=== PATIENT | female | born 1940 | race Caucasian/White ===

== ENCOUNTER 2025-11-22 10:54 | Day surgery (SDC) | payer BC, SELFPAY ==
[2025-11-22] VITALS (18 sets, daily range): BP systolic 91–177; BP diastolic 59–118; BMI 26.5
--- NOTE | 2025-11-22 11:35 | ITS.CL.PACE ---
Hydro Excavation Operator - Pacemaker Implant
Pacemaker Implant
Procedure Report:
Primary Care Doctor: Dr Garry New
Primary Switchman Supervisor: Dr Chaz Thayer
Procedure Date: 11/22/2025
Name of procedure:
1. Placement of a dual-chamber pacemaker with left bundle area pacing lead for conduction system pacing
2. Subclavian venography
History:
1. 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
hyperlipidemia, and history of right breast cancer.
2. Please refer to H&P for complete history.
Indication:
Symptomatic irreversible sinus bradycardia
Sick sinus syndrome with sinus pauses greater than 5 seconds
Syncope associated with above
Methods:
After informed consent was obtained, the patient was brought to the EP laboratory in a postabsorptive, nonsedated state. Peripheral IV access was established. Prophylactic antibiotics were administered prior to incision. Continuous ECG, blood
pressure, and pulse oximetry were initiated. Cardioversion patch electrodes were placed on the patient's chest and back. A grounding patch was applied to the skin. Sedation was administered by anesthesia services.
In order to define the extrathoracic portion of the subclavian vein and exclude significant venous obstruction or anomalous anatomy, subclavian venography was performed prior to the procedure. Using the patient's left peripheral IV, contrast was
injected and images were recorded. The left subclavian vein and SVC were found to be widely patent.
The left chest was prepared and draped in a sterile fashion. A time-out was performed. Local anesthesia was injected in the subcutaneous tissue in the infraclavicular area. An incision was made medial to the deltopectoral groove. The subcutaneous
tissue was dissected the level of the prepectoral fascia. A subcutaneous pocket was created. Under fluoroscopic guidance and with the assistance of the images from the venogram, 2 separate venipunctures were made using micropuncture and modified
Seldinger technique. These were performed in the extrathoracic portion of the subclavian vein. Guidewires were passed and two peel-away sheaths were placed, and used to advance leads into the circulation.
Fluoroscopy was used to determine likely anatomic site for left bundle branch pacing. The Medtronic C315 sheath was used to deliver the Medtronic 3830 Selectsecure pacing lead with the helix exposed just exposed from the sheath tip during continuous
monitoring when pacemapping the septum during gentle clockwise rotation to obtain a paced QRS morphology of a W pattern in lead V1. Once the suspected optimal site was identified, lead deployment was performed with several rapid rotations as paced
QRS morphology was intermittently monitored until a paced QRS complex in lead V1 demonstrated development of an R wave (qR or rSR). Unipolar pacing impedance dropped by approximately 100-200 ohms suggesting it had reached the left ventricular
subendocardial. Stable VEgm injury current is present throughout lead position and at end of case. Final unipolar pacing impedance is 1300 Ohms. Unipolar pacing threshold is stable at 1.0 V @ 0.4 ms. The patient had pre-existing narrow QRS at
baseline. Final conduction system paced QRS complex duration is 95 ms, LVAT is 66 ms, and peak V5 -> peak V1 timing is 46 ms. The C315 sheath was slit under fluoroscopy ensuring lead position and stability. The short peel-away sheath was then
split and the lead was secured to the fascia with Ethibond ties.
Next, the right atrial lead was positioned in the right atrial appendage. Adequate sensing and pacing parameters were found, and no diaphragmatic stimulation was seen with high-output pacing. The sheath was split and the lead was secured to the
fascia with Ethibond ties.
The pocket was flushed with antibiotic solution and hemostasis was assured. The generator was connected to the leads and placed inside the pocket. The device was sutured to the fascia. Antibiotic envelope was used. Floseal was applied. The wound
was closed with 3 running layers of absorbable suture, and steri-strips were applied. Dressing applied over steri-strips in standard fashion.
Following the procedure, the patient was taken to the recovery area in stable condition. A chest x-ray to be obtained post procedure as routine.
Lead parameters and device programming:
- RA Lead (Medtronic, Model 5076, # [id number]): Sensing 3.5 mV, Pacing threshold 0.75 V at 0.4 ms, Imp 418 ohm
- RV Lead (Medtronic, Model 3830, #[id number]): Sensing 14.9 mV, Pacing threshold 0.75 V at 0.4 ms, Imp 703 ohm (bipolar)
- Device: Medtronic, Model W1 DR 01 pacemaker (# [id number]), programmed AAIR�DDDR mode, 60-130 ppm
Conclusions:
1. Successful placement of a dual-chamber pacemaker with conduction system pacing (LBBAP)
2. Subclavian venography
Recommendations:
- Admit
- Chest x-ray tonight, [facility] in AM.
- IV antibiotics while the patient is admitted.
- OK to resume home medications as indicated
- Pressure dressing to be removed in AM, aquacell to remain until wound check
- Follow-up will be arranged in the office in 7-10 days post-discharge for incision check
Fco Peraza DO, FACC, RS
Clinical Cardiac Principal Law Clerk
cc: Dr Garry New; Dr Chaz Thayer
--- NOTE | 2025-11-22 18:05 | PTCARENOTE ---
Patient received from EP lab recovery following PPM insertion. Ambulated with standby assist into the room. Left chest PPM incision with aquacell and pressure dressing C/D/I, radial pulse palpable. Denies pain but reports a tugging sensation at the
site. LUE in immobilizer. Apaced on telemetry. SaO2 on RA 95-96%. Activity restrictions discussed. Patient oriented to room and unit. Call [place] within reach. Care ongoing.
--- NOTE | 2025-11-22 20:09 | PTCARENOTE ---
assumed care of patient at the change of shift. AAOx3. complaining of a mild headache; requested tylenol. prior to receiving medications patient asked to go to the bathroom. vital signs obtained. SR on tele 70s. bp 129/69. ambulated to the bathroom,
standby assist. patient was able to urinate and after standing and washing hands, patient states 'im not feeling that great.' RN assisted patient to sit on the toilet. patient began to look pale and states 'im feeling clammy.' RN called for extra
assistance. patient was able to stand and prior to sitting in chair; patient went unresponsive. blank stare and not responding to verbal commands. patient was unresponsive for less than a minute. a code was called but cancelled. RNs lifted patient
back to bed and patient started responding to verbal commands. Apacing on tele 60s. bp 128/72. 95% on RA. patient states feeling much better once settled. appears to be a vagal response. Rafael PALENCIA at the bedside. labs ordered and sent.
educated patient to inform RN with needing assistance.
[2025-11-22 20:20] LABS: Hematocrit 39.6 % (37.0-47.0); Hemoglobin 13.5 g/dL (12.0-16.0); Mean Corp Hgb Conc. 34.1 g/dL (33.0-37.0); Mean Corpuscular Volume 90.6 fL (81.0-99.0); Platelet Count 240 10^3/uL (130-400); Red Cell Dist. Width 13.5 % (11.5-14.5)
[2025-11-22] MEDS: TYLENOL 650 MG PO (20:36)
[2025-11-22] MEDS: ANCEF 5 IV (20:36)
[2025-11-22 20:39] LABS: Blood Urea Nitrogen 12 mg/dl (7-17); Calcium 8.7 mg/dl (8.4-10.2); Carbon Dioxide 24 mmol/L (22-30); Chloride 107 mmol/L (98-107); Estimated Creatinine Clearance 40 ml/min; Glucose 139 mg/dl (70-99); Magnesium 1.9 mg/dl (1.6-2.3); Potassium 3.8 mmol/L (3.5-5.1); Sodium 136 mmol/L (135-145); eGFR > 60.00
[2025-11-22] MEDS: MAGNESIUM OXIDE 400 MG PO (21:19)
[2025-11-22] MEDS: KCL 20 MEQ PO (21:19)
[2025-11-23 04:20] VITALS: BP 125/63
[2025-11-23] MEDS: SYNTHROID 88 MCG PO (04:38)
[2025-11-23] MEDS: ANCEF 5 IV (04:38)
[2025-11-23 04:40] VITALS: BMI 26.9
--- NOTE | 2025-11-23 04:43 | PTCARENOTE ---
overnight, RN assisted patient to the BSC. tolerated. no lightheadedness/dizziness. this morning, RN ambulated patient to the bathroom and back to bed. no issues. denied any lightheadedness/dizziness. steady on her feet. patient states feeling much
better. Apaced on tele. SR at times- 60s. bp 125/63. L chest site CDI. reviewed activity restrictions with patient and verbalized understanding.
[2025-11-23 05:07] LABS: Hematocrit 37.7 % (37.0-47.0); Hemoglobin 12.7 g/dL (12.0-16.0); Mean Corp Hgb Conc. 33.7 g/dL (33.0-37.0); Mean Corpuscular Volume 90.2 fL (81.0-99.0); Platelet Count 217 10^3/uL (130-400); Red Cell Dist. Width 13.6 % (11.5-14.5)
[2025-11-23 05:23] LABS: Blood Urea Nitrogen 10 mg/dl (7-17); Calcium 8.6 mg/dl (8.4-10.2); Carbon Dioxide 22 mmol/L (22-30); Chloride 108 mmol/L (98-107); Estimated Creatinine Clearance 46 ml/min; Glucose 97 mg/dl (70-99); Magnesium 2.1 mg/dl (1.6-2.3); Potassium 4.2 mmol/L (3.5-5.1); Sodium 135 mmol/L (135-145); eGFR > 60.00
[2025-11-23 07:26] VITALS: BP 136/93
--- NOTE | 2025-11-23 10:05 | W.PN.CARDCBS ---
Addendum entered and electronically signed by Fco Peraza DO 11/23/25 15:41:
I saw and examined the patient.
The Marketing Research Intern's note was reviewed and I agree with the note.
Comment:
Patient experienced episode of vasovagal syncope occurring yesterday evening. Patient was transferring from commode when she became lightheaded and dizzy with prodrome. Patient was helped to wheelchair when she lost consciousness. Patient was
helped by staff to the bed where she woke. Patient states that this is similar to her prior episodes postanesthesia. Telemetry demonstrated no arrhythmia. This morning, patient with multiple transfers from bed to commode and around the room
lightheadedness, dizziness, near-syncope syncope or weakness. Patient overall feeling well. Denies chest pain, shortness of breath, palpitations, weakness.
GENERAL: no acute distress
EYE: sclera anicteric
NECK: Supple, no JVD, no carotid bruit appreciated
ENT: normal nose, moist mucosal membranes
CARDIAC: Regular rate and rhythm, +S1/S2, no murmur, rubs, or gallops; L CIED site dressing c/d/i; mild tenderness to palpitation
CHEST/PULMONARY: Normal effort, clear breath sounds
ABDOMEN: Soft, without focal tenderness or distention
NEUROLOGICAL: Alert and oriented x3
SKIN: Warm and dry, no rash
PSYCH: Normal and appropriate interaction.
Telemetry shows sinus rhythm, a paced/V sensed, rare V pacing.
A/P as below
Patient is status post a dual-chamber pacemaker with conduction system lead on 11/22/2025 for symptomatic bradycardia, sick sinus syndrome with pauses
Chest x-ray shows no pneumothorax, stable device position
[facility] demonstrates stable sensing, pacing, lead impedances
Okay to resume anticoagulation on 11/24/2025
Restrictions reviewed
Incision check in 1 week
Continue cardiac care/follow-up with Dr. Thayer
Original Note:
Today's Communication / Plan
-
post device stable for d/c home
Impression / Plan
-
PCP: Garry Welch MD
CDY: Chaz Thayer MD
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
hyperlipidemia, and history of right breast cancer.
Impression:
Symptomatic irreversible bradycardia, syncope
SSS with pauses
post DC PPM with LBAP lead 11/22/25
Hyperlipidemia
PVC's
Breast cancer s/p R mastectomy
GERD
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
Reactive airway disease
IBS
Plan:
post device site stable
minimal inc pain
tele Apaced
CXR no PTX, leads in good position
Hold Xarelto resume on 11/24/25
Activity restrictions reviewed
Incision check 1 week at [facility]
continue cardiac care with Dr. Thayer
Home today
Progress Note - Magnetic Resonance Technologist
Subjective
Date of Service: November 23, 2025
denies cp, sob
Objective
Labs:
11/23/25 04:30
11/23/25 04:30
Labs
Hgb 12.7 g/dL (12.0-16.0) 11/23/25 04:30
Hct 37.7 % (37.0-47.0) 11/23/25 04:30
Plt Count 217 10^3/uL (130-400) 11/23/25 04:30
Sodium 135 mmol/L (135-145) 11/23/25 04:30
Potassium 4.2 mmol/L (3.5-5.1) 11/23/25 04:30
BUN 10 mg/dl (7-17) 11/23/25 04:30
Creatinine 0.8 mg/dL (0.6-1.0) 11/23/25 04:30
Glucose 97 mg/dl (70-99) 11/23/25 04:30
Vital Signs and I&O:
Vital Signs
Temp Pulse Resp BP Pulse Ox
98.1 F 81 20 136/93 95
11/23/25 07:28 11/23/25 07:30 11/23/25 07:28 11/23/25 07:26 11/23/25 07:28
Vital Signs
Temp Pulse Resp BP Pulse Ox
98.1 F 81 20 136/93 95
11/23/25 07:28 11/23/25 07:30 11/23/25 07:28 11/23/25 07:26 11/23/25 07:28
Intake & Output
11/21/25 11/22/25 11/23/25 11/24/25
06:59 06:59 06:59 06:59
Intake Total 630 / 630
Output Total 400 / 400
Balance 230 / 230
Physical Exam
Physical Exam
NAD< AOX3
S1, S2, RRR
CTAB, non laobred, no wheeze
SNTND Bsx4
L CW site c/d/i no HT, drainage
[2025-11-23 10:54] VITALS: BP 141/72
--- NOTE | 2025-11-23 11:05 | W.DS.TRANS ---
DC Summary - Transfer Professor
-
Discharge Instructions:
Discharge Diagnosis/Procedures Pacemaker implant
Diet Regular
Driving Restrictions No driving for 1 week
Bathing Restrictions OK to Shower
Instructions:
Stand-Alone Forms: DC Inst - Implanted Device
Changes to Home Medications: No
Discharge Medications:
DC Medications w/original date entered in [employer]
fluticasone 100 mcg-salmeterol 50 mcg/dose blistr powdr for inhalation (Advair Diskus) 1 inh inhalation BID 11/22/25
levothyroxine 88 mcg tablet (Synthroid) 88 mcg PO DAILY 11/22/25
loratadine 10 mg tablet 10 mg PO DAILY PRN allergies 11/22/25
montelukast 10 mg tablet 10 mg 11/22/25
pantoprazole 40 mg tablet,delayed release 40 mg PO DAILY 11/22/25
rivaroxaban 10 mg tablet (Xarelto) 10 mg PO DAILY 11/22/25
Held on 11/23/25. Instructions: Resume on 11/24/25.
zolpidem 5 mg tablet 5 mg PO HS PRN insomina 11/22/25
Home Medication Changes
Pending Results: No
--- NOTE | 2025-11-23 11:13 | PTCARENOTE ---
Pt is AOx3, no complaints of pain or discomfort. Educated on restrictions for left arm. Pt and daughter verbalized understanding. SR w/ A pacing on tele monitor, VSS. Plan for discharge later today. Call [place] within reach.
== END 2025-11-23 11:48 | disposition home or self-care (01) ==
LOC: CATH 10:54
PROVIDERS: Nurse Practitioner Adult Health; ATTENDING PHYSICIAN Internal Medicine Cardiovascular Disease; FAMILY PHYSICIAN Internal Medicine; OTHER PHYSICIAN Internal Medicine Cardiovascular Disease
DX: I49.5 Sick sinus syndrome (principal); E78.2 Mixed hyperlipidemia; C50.919 Malignant neoplasm of unspecified site of unspecified female breast; I49.3 Ventricular premature depolarization; J45.909 Unspecified asthma, uncomplicated; K21.9 Gastro-esophageal reflux disease without esophagitis; K58.9 Irritable bowel syndrome, unspecified; R55 Syncope and collapse; Z79.899 Other long term (current) drug therapy
CPT/HCPCS: 33208; 71045; 80048; 83735; 85027; 93005; C1769; C1785; C1887; C1898; Q9967